=== PATIENT | male | born 1965 | race Caucasian/White ===

== ENCOUNTER 2019-06-30 00:49 | Day surgery (SDC) | payer BC, SELFPAY ==
[2019-06-23 08:31] VITALS: BMI 32.1
[2019-06-30] VITALS (8 sets, daily range): BP systolic 116–149; BP diastolic 77–96; PULSE 50–81; RESP 12–20; TEMP 35.9–36.2; O2SAT 100
[2019-06-30] MEDS: LACTATED RINGERS 1,000 ML 30 ML IV CONT (09:45)
--- NOTE | 2019-06-30 10:07 | P.PNAN_ITS ---
Anes - Initial Pre Proc Eval Procedure: Operation Date: 06/30/19 11:30 Proposed Procedures p Direct Microlaryngoscopy - Mariano Lawrence MD s With Biopsy Of Base Of Tongue Mass - Mariano Lawrence MD Date/Time: 06/30/19 10:07 Surgeon: Mariano Lawrence MD Pre Op Diagnosis: Neck Mass Patient Data Age: 53 Gender: M Height: 1.88 m Weight: 113.6 kg Last Vital Signs Temp 35.9 C L 06/30/19 09:48 Pulse 56 L 06/30/19 09:48 Resp 20 06/30/19 09:48 BP 143/81 H 06/30/19 09:48 Pulse Ox 100 06/30/19 09:48 Allergies Allergy/AdvReac Type Severity Reaction Status Date / Time No Known Allergies Allergy Verified 06/30/19 09:47 Home Medications Medication Instructions Recorded Confirmed Type oxycodone-acetaminophen 1 tablet PO Q6H 06/23/19 06/30/19 History testosterone enanthate 100 mg SUBCUT [id number] 06/23/19 06/23/19 History Patient hx anesthesia problems: none Family hx anesthesia problems: none [facility] Past Medical History Medical History (Updated 06/30/19 @ 10:07 by Sincere Chery DO) Anemia Chronic prescription opiate use 10 mg oxycodone x 4 per day Deafness in left ear Surgical History Surgical History (Updated 06/30/19 @ 07:56 by Sincere Chery DO) History of spinal fusion neck and lumbar Family History Family History (Updated 02/10/12 @ 10:58 by DOCTOR UNKNOWN) Other Family history of lung cancer Hypertension Social History Social History Smoking status: Never smoker Alcohol intake: never Anes - Eval Final PreProcedure Day of Procedure 06/30/19 10:07 Patient weight: obese Heart: regular rate and rhythm Lungs: clear to auscultation and normal air movement Airway: Mallampati scale class II and special considerations poor extension Neurological: alert and oriented Last oral intake: >/= 8 hours ASA classification: III Emergent: no Anesthetic plan: proceed Anesthesia type and monitoring: general ETT and standard monitoring Informed Consent: The patient's anesthetic plan and its attendant risks and benefits were discussed with the patient/family/POA. Questions were solicited and answers provided to the satisfaction of the patient/family/POA.
--- NOTE | 2019-06-30 11:04 | WPDHPUPDATE1 ---
History and Physical Update Update Date/Time: 06/30/19 11:04 History and Physical has been reviewed, including an updated exam of the patient. There are NO changes in the patient's condition. Risks, benefits, and alternatives have been discussed and questions answered. Patient agrees to proceed with procedure.
--- NOTE | 2019-06-30 11:28 | PM.IMHP ---
H&P: HPI History of Present Illness Chief complaint: Neck Mass Narrative: BOT mass Review of Systems Review of Systems: All systems reviewed & are unremarkable except as noted in HPI and below PMFSH Past Medical History Medical History (Updated 06/30/19 @ 11:28 by Mariano Lawrence MD) Anemia Chronic prescription opiate use 10 mg oxycodone x 4 per day Deafness in left ear Surgical History Surgical History (Updated 06/30/19 @ 07:56 by Sincere Chery DO) History of spinal fusion neck and lumbar Family History Family History (Updated 02/10/12 @ 10:58 by DOCTOR UNKNOWN) Other Family history of lung cancer Hypertension Social History Social History Smoking status: Never smoker Alcohol intake: never Meds Home Medications and Allergies Home Medications Medication Instructions Recorded Confirmed Type oxycodone-acetaminophen 1 tablet PO Q6H 06/23/19 06/30/19 History testosterone enanthate 100 mg SUBCUT [id number] 06/23/19 06/23/19 History Allergies Allergy/AdvReac Type Severity Reaction Status Date / Time No Known Allergies Allergy Verified 06/30/19 09:47 Vital Signs Vital Signs - 24 hr 06/30/19 09:48 Temperature 35.9 C L Pulse Rate 56 L Respiratory Rate 20 Blood Pressure 143/81 H Pulse Oximetry 100 Exam Narrative: Exam Narrative: BOT MASS Const: General: comfortable, no acute distress, in distress and uncomfortable HENMT: Ears: TM's normal bilaterally and TM abnormal General nose exam: Normal nares present and Epistaxis present Mouth: Yes moist mucous membranes, Yes dry mucous membranes and Yes Abnormal oral and palatal mucosa present Assessment and Plan Assessment and plan (1) 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 Refer to outpt H&P for full details
--- NOTE | 2019-06-30 11:30 | PM.PROC ---
Procedure Note - Detailed Date of procedure: 06/30/19 Pre-op diagnosis: Neck Mass Right Base of tongue mass Post-op diagnosis: same Procedure performed: Direct laryngoscopy, biopsy with endoscopic visualization Description of procedure: Description of procedure: On the date of surgery, the patient was identified in the preoperative holding area. All questions answered, consent signed and verified and they agreed to proceed. They were then brought to the OR and placed under general endotracheal anesthesia with a 7.0 sized endotracheal tube. A shoulder roll was placed. Timeout was performed verifying the correct patient identity and procedure to be performed which they were. The patient was then draped in standard fashion for direct laryngoscopy with biopsy. The bed was rotated 90 degrees counter-clockwise. No dental guard used due to being edentulous. A laryngoscope was then advanced in the oral cavity and upper airway to visualize all subsites of the oral cavity, oropharynx, hypopharynx and larynx. Bimanual exam also performed. The right base of tongue mass was noted. The patient was then suspended from the edouard stand. Under endoscopic visualization, photos were taken. Using biopsy forceps, this tongue base mass was biopsied. Minimal bleeding occurred and did not require significant intervention for hemostasis. Another photo taken. With adequate specimen taken, the procedure was concluded. The laryngoscope was removed, the dental guard removed, and the oral cavity was examined showing no injury to lips, gums, teeth or tongue. Care of the patient was returned to anesthesia who extubated the patient and transferred to the PACU for recovery in stable condition without complication. Mariano Lawrence M.D. Anesthesia: GETA Surgeon: Mariano Lawrence MD Drains: No Packing: No Pathology: yes Complications: No immediate complications Condition: stable Disposition: PACU Findings: 2cm right BOT mass, several biopsies taken. Suspicious for SCCa.
[2019-06-30] MEDS: LIDO 1%/EPINEPHRINE 1:100,000 20 ML VIAL INFILTRATE (11:54)
[2019-06-30] MEDS: OXYMETAZOLINE HCL 0.05% NAS 15 ML BTL (*BKC) 1 SPRAY NASAL (11:56)
== END 2019-06-30 14:10 | disposition home or self-care (01) ==
PROVIDERS: PCP Emergency Medicine; Visit Provider Otolaryngology
PROC: 0CJS8ZZ Inspection of Larynx, Via Natural or Artificial Opening Endoscopic (ICD-10-PCS; CPT 31575; principal; 2019-06-30 11:30)
PROC: (CPT 41105; 2019-06-30 11:30)
DX: C01 Malignant neoplasm of base of tongue (principal); D64.9 Anemia, unspecified; Z79.891 Long term (current) use of opiate analgesic; Z98.1 Arthrodesis status; E66.9 Obesity, unspecified; Z68.32 Body mass index [BMI] 32.0-32.9, adult
CPT/HCPCS: 41105; 88305; 88342; A9270; J2250; J2704; J7120